=== PATIENT | female | born 1970 | race Two or more races ===

== ENCOUNTER 2022-11-22 00:01 | Emergency (ER) | payer OTHER ==
[~2022-11-22] VITALS: Ht 165.1 cm; Wt 98.0 kg
--- NOTE | 2022-11-22 00:17 | NUR ---
[id number] FR HOME W/ CC OF PALPITATION. HR 120's [employer]. RECENTLY TOOK HYDROCHLORTHIAZIDE. HR 110
--- NOTE | 2022-11-22 00:33 | NUR ---
DR. MOYA AT BEDSIDE
--- NOTE | 2022-11-22 00:53 | NUR ---
20G IV STARTED ON R AC. BLOOD COLLECTED SENT TO LAB
[2022-11-22 01:23] LABS: BASOPHILS % (AUTO) 0.4 % (0.0-2.0); EOSINOPHILS % (AUTO) 0.3 % (0.0-6.0); HEMATOCRIT 44 % (33-45); HEMOGLOBIN 14.7 g/dL (11.5-14.8); LYMPHOCYTES # (AUTO) 1.4 K/uL (0.8-4.8); LYMPHOCYTES % (AUTO) 20.9 % (20.0-44.0); MEAN CORPUSCULAR HGB CONC 34 g/dl (31.0-36.0); MEAN CORPUSCULAR VOLUME 90 fL (82-100); MONOCYTES # (AUTO) 0.4 K/uL (0.1-1.30); MONOCYTES % (AUTO) 5.5 % (2.0-12.0); NEUTROPHILS # (AUTO) 4.8 K/uL (1.8-8.9); NEUTROPHILS % (AUTO) 72.9 % (43.0-81.0); PLATELET COUNT (AUTO) 297 K/uL (150-450); RED BLOOD CELL COUNT(AUTO) 4.85 MIL/uL (4.0-5.2); WHITE BLOOD COUNT (AUTO) 6.5 K/uL (4.3-11.0)
[2022-11-22 01:32] LABS: CALCIUM, SERUM 9.9 mg/dL (8.5-10.1); CARBON DIOXIDE 25 mmol/L (21-32); CHLORIDE 102 mmol/L (98-107); CREATININE 0.7 mg/dL (0.6-1.3); GLUCOSE 119 mg/dL (74-106); POTASSIUM 3.2 mmol/L (3.5-5.1); SODIUM SERUM 139 mmol/L (136-145); UREA NITROGEN, BLOOD 11 mg/dL (7-18)
[2022-11-22 02:34] VITALS: BP 134/90
--- NOTE | 2022-11-22 02:34 | NUR ---
Patient discharged to home in stable condition. Written and verbal after care instructions given. Patient verbalizes understanding of instruction.IV removed. Catheter intact and site benign. Pressure and 4x4 applied to site. No bleeding noted.
== END 2022-11-22 03:15 | disposition home or self-care (01) ==
LOC: ER 00:03
DX: R00.2 Palpitations (principal); R00.0 Tachycardia, unspecified; I10 Essential (primary) hypertension; E78.5 Hyperlipidemia, unspecified
CPT/HCPCS: 36415; 71045-TC; 80048-TC; 84484-TC; 85025-TC